=== PATIENT | male | born 1995 | race Hispanic/Latino ===

== ENCOUNTER 2017-02-03 09:29 | Emergency (ER) | payer OTHER ==
[~2017-02-03] VITALS: Ht 170.2 cm; Wt 77.3 kg
[2017-02-03] MEDS ORDERED: NORCO, ANEXSIA 5/325MG TABLET (HYDROcodone/ACETAMINOPHEN) PO ONE (10:45)
[2017-02-03] MEDS ORDERED: IBUP80TA PO (11:59)
[2017-02-03 12:02] VITALS: BP 122/56
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
== END 2017-02-03 12:09 | disposition home or self-care (01) ==
LOC: M ED 09:29
DX: S80.01XA Contusion of right knee, initial encounter (principal); S00.93XA Contusion of unspecified part of head, initial encounter; S60.812A Abrasion of left wrist, initial encounter; V49.50XA Passenger injured in collision with unspecified motor vehicles in traffic accident, initial encounter; Y92.410 Unspecified street and highway as the place of occurrence of the external cause; Y93.89 Activity, other specified; Y99.9 Unspecified external cause status